=== PATIENT | male | born 1995 | race Caucasian/White ===

== ENCOUNTER 2018-08-26 07:45 | Day surgery (SDC) | payer BC ==
[2018-08-26] MEDS ORDERED: PROPOFOL 10 MG/ML VIAL IV ONE (07:46)
[2018-08-26] MEDS ORDERED: LIDOCAINE 2% MDV (20MG/ML) 20ML VIAL IV ONE (07:46)
--- NOTE | 2018-08-27 08:41 | Operative Note ---
DATE OF SURGERY: OPERATION: COLONOSCOPY with cold forceps polypectomy. PREOPERATIVE DIAGNOSIS: Hematochezia of unclear origin. POSTOPERATIVE DIAGNOSIS: Hemorrhoids and sigmoid polyp. PROCEDURE: After informed consent was obtained from the patient, he was placed in the left lateral decubitus position in the endoscopy suite, sedated and monitored by the department of anesthesia. Digital rectal exam revealed no external hemorrhoids or palpable rectal mass. A well-lubricated [id number] colonoscope was inserted into the rectum and advanced to the cecum. Preparation quality was good to excellent. The cecum, ileocecal valve, appendiceal orifice, terminal ileum, ascending colon, transverse colon, and descending colon were free of inflammatory changes, mass lesions, or polyps. There was a diminutive sigmoid colon polyp removed with a cold forceps. No excessive bleeding was noted. The rectum was unremarkable in forward and in J-turn views other than perhaps some mild hemorrhoidal prominence. The endoscope was straightened, the rectal ampulla deflated, and the endoscope was removed. RECOMMENDATIONS: I would suggest the patient follow a high-fiber diet. As far as the polyp is concerned, he may require repeat exam in 5 years. However, if this is hyperplastic, a repeat colonoscopy at age 45-50 would be suggested. As always, thank you for allowing me to participate in the healthcare of your patients. CC: LAYTON SADLER D.O. KULDEEP
== END 2018-08-26 09:33 | disposition home or self-care (01) ==
LOC: HOP 07:45
PROVIDERS: ATTEND Internal Medicine Gastroenterology
DX: K92.1 Melena (principal); D12.5 Benign neoplasm of sigmoid colon; K64.8 Other hemorrhoids